=== PATIENT | male | born 1965 | race Hispanic/Latino ===

== ENCOUNTER → 2025-02-18 | Outpatient (CLI) | payer OTHER ==
[~2025-02-18] MED LIST: IOHEXOL 350 MG/ML 100ML INFUS..BTL IV ONE
--- NOTE | 2025-02-18 19:53 | CARDIOLOGY ---
RAD REPORT: CORNARY CT ANGIO RADIOLOGY REPORT: CORONARY CT ANGIOGRAPHY DATE: Feb 18, 2025 QUALITY: Excellent CLINICAL HISTORY AND INDICATION: [ CLARK ] TECHNIQUE: After obtaining a preliminary scout professional sports image, contrast imaging performed on an [employer] [id number] scanner. A dedicated, limited window, coronary imaging protocol was used, with single breath-hold, retrospective ECG gating, and automated arrhythmia rejection. 100 cc of low osmolar contrast agent: Omnipaque 350 was delivered via a 18-gauge IV catheter in the right antecubital fossa, using a power injector and followed by 60 cc of normal saline bolus as a chaser. Collimated images were reformatted at 0.5 mm intervals, and sent to an offline independent workstation for interpretation, using 3D anatomic reconstructions: Curved multiplanar reconstructions, maximum intensity projections, and multiplanar imaging. No metoprolol was administered prior to scanning due to low baseline heart rate. 0.4 mg SL nitroglycerin was given. CORONARY ARTERY DESCRIPTIONS: The coronary arteries arise in normal position. Left main coronary artery: Normal caliber vessel that bifurcates into the LAD and LCx. No stenosis. Left anterior descending coronary artery: Normal caliber vessel and gives rise to diagonal and septal branches. No stenosis. Left circumflex coronary artery: Normal caliber, nondominant and gives rise to a large OM branch. There is mixed calcified and noncalcified plaque in the mid and distal LCx with 50-60% stenosis. Right coronary artery: Large, dominant vessel giving rise to the PL and PDA branches. No stenosis. CAD-RADs: 3, moderate stenosis vs motion artifact. Sent for FFR. Thoracic Aorta: Normal diameter. Rita Berger MD Cardiovascular Disease [facility] RITA BERGER MD Feb 18, 2025 19:53
--- NOTE | 2025-02-19 10:38 | HMCIMG ---
EXAM: CT Cardiac Angiogram. CLINICAL HISTORY: Chest pain. TECHNIQUE: Thin collimated axial CT cardiac angiogram images were obtained. A CT scan is done according to ALARA (As Low As Reasonably Achievable). COMPARISON: None provided. FINDINGS: Coronary CT Angiography: Dominance of the coronary artery system: Right Left Main: The left main is a normal caliber vessel that gives rise to the LAD and circumflex arteries. The left main has no stenosis or plaques. Left Anterior Descending Artery /T/ Diagonals: There is patchy atherosclerotic eccentric calcification in the proximal LAD, causing moderate narrowing of up to 50%. 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 The first diagonal branch has no stenosis or plaques. The distal LAD appears normal. LAD is a type II vessel. Left Circumflex Artery /T/ Obtuse Marginals: There is mild eccentric calcified plaque in the proximal and mid LAD, causing mild narrowing of up to 10%. The rest of the left circumflex artery and its obtuse marginal branches (OM1 2) have no stenosis or plaques. Right Coronary Artery: There is a circumferential medium segment noncalcified plaque in the proximal right coronary artery from the origin and extending for a length of approximately 3 cm, causing significant narrowing of up to 75%. The rest of the right coronary artery and the acute marginal are normal in course and show no plaques or stenosis. RCA is a dominant artery. The right posterior descending artery and right posterolateral branches have no stenosis or plaques. Cardiac Morphology:Both atria and ventricles are normal. The mitral valve leaflets are normal. The pericardium is normal, and there is no pericardial effusion. The aortic valve is tricuspid. The visualized thoracic aorta is normal in course and caliber. Extracardiac findings:The visualised pulmonary arteries appear normal in caliber. The visualised lung parenchyma is unremarkable. The included portion of the upper abdomen appears normal. IMPRESSION: 1. Triple-vessel coronary artery disease as described. CADRADS 4A. 2. Right Dominant Circulation. /[place]
== END | disposition home or self-care (01) ==
LOC: RAH 08:33
PROVIDERS: ATTEND Student in an Organized Health Care Education/Training Program
DX: I25.10 Atherosclerotic heart disease of native coronary artery without angina pectoris (principal); R07.9 Chest pain, unspecified
CPT/HCPCS: 75574; Q9967

== ENCOUNTER → 2025-02-21 | Outpatient (CLI) | payer OTHER | END | disposition home or self-care (01) | LOC: RAH 08:00 | PROVIDERS: ATTEND Student in an Organized Health Care Education/Training Program | DX: R07.9 Chest pain, unspecified (principal) | CPT/HCPCS: 75580 ==